=== PATIENT | male | born 1980 | race Caucasian/White ===

== ENCOUNTER 2017-02-26 00:38 | Emergency (ER) | payer SELFPAY ==
[~2017-02-26] VITALS: Ht 175.3 cm; Wt 77.3 kg
[~2017-02-26 00:38] MED LIST: NOMED
[2017-02-26 00:42] VITALS: BP 116/71; PULSE 75; RESP 16; O2SAT 96
--- NOTE | 2017-02-26 01:40 | ED.REPORT ---
HPI-Extremity Problem Upper Date of Service Feb 26, 2017 ED Provider: Sadi Montemayor MD 36 year old male presents to the ER complaining of left third finger pain status post crushing the digit between concrete blocks several weeks ago, and later striking the finger with a hammer. He reports throbbing pain that radiates along his left arm that has increasingly worsened since the incident. Pain is such that it has prevented him from sleeping in recent days. He attempted to drain the wound 4 days after the injury without success. Patient denies any further injuries. Nursing Notes Stated Complaint: POSS BROKEN LEFT FINGER Chief Complaint: Extremity Trauma Nursing Notes Reviewed: Yes Allergies: Coded Allergies: No Known Allergies (Verified , 07/10/08) Scheduled PRN Ibuprofen (Ibuprofen) 600 Mg Tablet 600 MG PO QID PRN PRN For Pain Miscellaneous Medications No Historical Medication (No Historical Medication) Ea General Time Seen by MD: 01:40 Chief Complaint Finger injury left 3 Hx Obtained From: Patient Arrived By: Walk-in Onset Occurred: Onset unknown ("Several weeks") Symptom Duration: Since onset Caused by: Accidental Context: Occurred at: Home injury Location: : Finger left 3 Quality: Painful Severity: Current: Moderate Severity: Maximum: Moderate Pertinent Negative: Pt denies other symptoms Similar Sx Previous: No Past Medical History Past Medical History Denies Past Surgical History Sinus surgery Smoking History Never Smoker Social History Alcohol Use: Denies alcohol use Drug Use: THC Ambulatory Status Independent Review of Systems Musculoskeletal: Reports: Extremity pain (Left Finger), Denies: Back pain, Joint pain, Lumbar pain, Neck pain, Thoracic pain Complete sys rev & neg: except as marked. Physical Exam Initial Vital Signs Vital Signs (First) Date Time Temp Pulse Resp B/P Pulse Ox O2 Delivery O2 Flow Rate FiO2 02/26/17 00:42 36.3 75 16 116/71 96 Initial VS: Reviewed General/Constitutional: Well-developed, Well-nourished Head / Eyes: Atraumatic, Normocephalic Neck: Supple, Non-tender, Full range of motion Lower Extremities: Vascular intact, Neuro intact, No swelling, No tenderness Skin: Warm, Dry, No cyanosis Neurologic: Alert, Oriented, Nonfocal Upper Extremity / MS: Atraumatic, Inspection NL, Full range of motion, No swelling, Non-tender, No snuffbox tenderness, No erythema, No deformity, Neurologic intact, Vascular intact, No compartment syndrome, No clubbing/ cyanosis Wrist / Hand: Full range of motion, Neurologic intact, Vascular intact Subungual hematoma under proximal edge of left middle finger. Mild swelling of the finger. No swelling of the hand, or redness. Interpretation & Diagnostics X-Ray Interpretation Xray Interpretation: Chip fracture to the distal phalanx of the left third finger. Study Performed: X-RAY LEFT FINGERS Interpretation / Wet Read by: Wet read ED physician Procedures Incision & Drainage Paronychia Time: 01:50 Splint Application - Fx Mgt Time: :55 Procedure Performed by: ED physician Precise Anatomic Location: Left Hand Cock-Up Definitive Fracture Care: Splint Post-Procedure / Complications: Cap refill normal, Post splint vascular nl, Post splint neuro nl, Condition improved, Tolerated procedure well, Patient stable Splint Post-Application Eval Extremity Condition: Cap refill < 2 sec, Distal sensation intact, Distal motor Intact, No compartment syndrome Subungual Hematoma Evacuation Time: :55 Procedure Performed by: ED physician Consent / Setup / Site Prep: Informed consent provided, Consent from patient , Time-out performed, Hand hygiene observed, Stand sterile technique Digit Involved: Middle finger left Preparation: Hibiclens - Chlorhexidine Trephination: Hot wire elcectocautery Post-Procedure / Complications: Dressing applied, No complications, Condition improved, Tolerated procedure well, Patient stable Re-Eval/Medical Decision Med Decision/Clinical Course 36-year-old presents nearly a week out from a crush injury to his finger. He continues to throb, which has generated the concern. He had a subungual hematoma he attempted to drain, but days after the incident. A repeat attempt today reveals no liquid blood. This would appear to be consolidated at this point and not drainable. The x-ray shows a small chip fracture but he has intact sensation and vascularity and tendons. Les taped and a metal splint applied for protection. Discharged in stable condition with ibuprofen for pain. Re-Evaluation/Progress : Time of Eval: 01:49 Re-Evaluation/Progress Note: Discussed imaging results and plan to discharge. Patient is amenable to the plan. Return precautions given. All other questions addressed. Counseled Regarding: Diagnosis, Need for follow-up, When/why to return to ED Discharge & Departure Impression: Primary Impression: Fracture of phalanx of finger, closed Encounter type: initial encounter Finger: middle finger Phalanx: middle Fracture alignment: nondisplaced Laterality: left Qualified Code: S62.653A - Nondisplaced fracture of medial phalanx of left middle finger, initial encounter for closed fracture Additional Impression: Subungual hematoma of finger of left hand Encounter type: initial encounter Qualified Code: S60.10XA - Contusion of unspecified finger with damage to nail, initial encounter Disposition: Home Discharge Condition All VS Reviewed: Yes Condition: Stable Patient Instructions: Finger Fracture (DC) Additional Instructions: Les tape and splint finger as long as tender. Ibuprofen 600 mg four times daily as needed for pain Follow up with your doctor and with orthopedics regarding the possibility of carpal tunnel. Wear the cock-up splint to sleep at night. It is not necessary to wear during the day. Referrals: NOPCP (PCP) Pieter Amaral DO [facility] Scribe Attestation Portions of this note were transcribed by Mannie Camarillo. I, Dr. Montemayor, personally performed the history, physical exam and medical decision-making; I reviewed and confirmed the accuracy of the information in the transcribed note. Signed by: Abhishek Bowling. 02/26/2017 - 02:04 copies to: Pieter Amaral DO; [facility] Sadi Montemayor MD Feb 26, 2017 01:40 MANNIE CAMARILLO Feb 26, 2017 01:49
[2017-02-26] MEDS ORDERED: IBUP-1827 PO (02:00)
--- NOTE | 2017-02-26 08:46 | DRSVH ---
PROCEDURE: X-RAY FINGERS, TWO VIEWS INDICATIONS: smashed left finger TECHNIQUE: AP hand, 2 views of the third finger(s) acquired. COMPARISON: None. FINDINGS: Bones: Small bony fragment adjacent to the head of the third middle phalanx along the ulnar surface w here there is mild soft tissue swelling Soft tissues: No suspicious soft tissue calcifications. IMPRESSION: Small bony fragment adjacent to the third middle phalanx likely an avulsion fracture. Dictated by: Justin Gonzalez [facility] Interpreted: Yaquelin Wooten MD on 02/26/2017 at 8:45 Transcribed by: KAROL on 02/26/2017 at 8:46 Approved by: Yaquelin Wooten MD, PhD on 02/26/2017 at 12:50
== END 2017-02-26 02:08 | disposition home or self-care (01) ==
LOC: SED 00:38
DX: S62.653A Nondisplaced fracture of middle phalanx of left middle finger, initial encounter for closed fracture (principal); S60.132A Contusion of left middle finger with damage to nail, initial encounter; W23.1XXA Caught, crushed, jammed, or pinched between stationary objects, initial encounter; Y93.89 Activity, other specified; Y92.098 Other place in other non-institutional residence as the place of occurrence of the external cause; Y99.8 Other external cause status